=== PATIENT | male | born 1985 | race African-American/Black ===

== ENCOUNTER 2025-03-02 10:46 | Emergency (ER) | payer OTHER, SELFPAY ==
[2025-03-02] MEDS ORDERED: NA CHLORIDE 0.9% 1,000 ML ONE ×2 (12:22→14:43)
[2025-03-02 12:34] LABS: Absolute Lymphocytes (CBC) 2.2 K/uL (0.7-4.9); Hematocrit 41.8 % (39.6-49.0); Hemoglobin 14.3 g/dL (13.6-17.9); MCH 30.3 pg (27.0-35.0); MCHC 34.2 g/dL (32.0-36.0); MCV 88.7 fL (80-100); MPV 8.3 fL (7.6-11.3); Nucleated RBC Absolute Count 0.1 (0-0); Nucleated Red Blood Cells % 0.7 % (0-0); RBC Red Blood Cell Count 4.72 M/uL (4.33-5.43); White Blood Count 7.00 thou/uL (4.3-10.9)
[2025-03-02 13:05] LABS: ALT/SGPT 32.0 U/L (16-61); AST/SGOT 22.0 U/L (15-37); Albumin 3.7 g/dL (3.4-5.0); Albumin/Globulin Ratio 0.8 (1.1-1.8); Alkaline Phosphatase 68.0 U/L (45-117); Anion Gap 17.1 mEq/L (5.0-15.0); BUN Blood Urea Nitrogen 28.0 mg/dL (7-18); Globulin 4.6 g/dL (2.3-3.5); Glucose Level 397.0 mg/dL (74-106); Potassium 5.1 mEq/L (3.5-5.1)
[2025-03-02] MEDS ORDERED: INSULIN REGULAR (HUMAN) 100 UNIT/ML ONE (13:26)
[2025-03-02 16:12] LABS: Anion Gap 12.5 mEq/L (5.0-15.0); BUN Blood Urea Nitrogen 23.0 mg/dL (7-18); Glucose Level 209.0 mg/dL (74-106); Potassium 3.5 mEq/L (3.5-5.1)
--- NOTE | 2025-03-02 16:19 | ER ---
Nurse's Notes [facility] Name: Steven Vidales Age: 40 yrs Sex: Male : 1985 Arrival Date: 03/02/2025 Time: 10:46 Bed 16 Private MD: Diagnosis: Diabetes mellitus due to underlying condition with hyperglycemia Presentation: 03/02 10:56 Chief complaint: Spouse and/or significant other states: Hgb AIC was 13. Patient lost me1 his insurance and has been trying to manage blood sugar with diet and exercise but isnt able to. Hoping we can prescribe him something to help. Blood glucose is 412. Coronavirus screen: At this time, the client does not indicate any symptoms associated with coronavirus-19. Ebola Screen: No symptoms or risks identified at this time. Initial Sepsis Screen: Does the patient meet any 2 criteria? No. Patient's initial sepsis screen is negative. Does the patient have a suspected source of infection? No. Patient's initial sepsis screen is negative. Risk Assessment: Do you want to hurt yourself or someone else? Patient reports no desire to harm self or others. Onset of symptoms is unknown. 10:56 Method Of Arrival: Ambulatory [facility] [place] 10:56 Acuity: REG 3 me1 Triage Assessment: 12:38 General: Appears in no apparent distress. Behavior is cooperative. Pain: Denies pain. kj2 Neuro: Level of Consciousness is awake, alert, obeys commands, Oriented to person, place, time, situation. Cardiovascular: Patient's skin is warm and dry. Respiratory: Airway is patent Respiratory effort is unlabored. GI: No signs and/or symptoms were reported involving the gastrointestinal system. : No signs and/or symptoms were reported regarding the genitourinary system. Historical: - Allergies: 11:03 No Known Allergies; me1 - PMHx: 11:03 Diabetes mellitus; hemothorax; me1 - PSHx: 11:03 toe; me1 - Immunization history:: Adult Immunizations up to date. - Infectious Disease History:: Denies. - Social history:: Smoking status: Reported history of juuling and/or vaping. Patient/guardian denies using tobacco, but has a distant history of tobacco abuse. Screenin:39 [facility] ED Fall Risk Assessment (Adult) History of falling in the last 3 months, kj2 including since admission No falls in past 3 months (0 pts) Confusion or Disorientation No (0 pts) Intoxicated or Sedated No (0 pts) Impaired Gait No (0 pts) Mobility Assist Device Used No (0 pt) Altered Elimination No (0 pt) Score/Fall Risk Level 0 - 2 = Low Risk Maintained a safe environment, Hourly rounding (assess needs \T\ fall precautionary measures) done. Abuse screen: Denies threats or abuse. Denies injuries from another. Nutritional screening: No deficits noted. Tuberculosis screening: No symptoms or risk factors identified. Assessment: 12:38 General: Appears in no apparent distress. Behavior is calm, cooperative. Neuro: Level kj2 of Consciousness is awake, alert, obeys commands, Oriented to person, place, time, situation. Cardiovascular: Patient's skin is warm and dry. Respiratory: Airway is patent Respiratory effort is unlabored. GI: No signs and/or symptoms were reported involving the gastrointestinal system. : No signs and/or symptoms were reported regarding the genitourinary system. 13:30 Reassessment: Patient appears in no apparent distress at this time. Patient and/or kj2 family updated on plan of care and expected duration. Pain level reassessed. Patient is alert, oriented x 3, equal unlabored respirations, skin warm/dry/pink. 14:30 Reassessment: Patient appears in no apparent distress at this time. Patient and/or kj2 family updated on plan of care and expected duration. Pain level reassessed. Patient is alert, oriented x 3, equal unlabored respirations, skin warm/dry/pink. 15:13 Reassessment: Patient appears in no apparent distress at this time. Patient and/or kj2 family updated on plan of care and expected duration. Pain level reassessed. Patient is alert, oriented x 3, equal unlabored respirations, skin warm/dry/pink. 16:15 Reassessment: Patient appears in no apparent distress at this time. Patient and/or kj2 family updated on plan of care and expected duration. Pain level reassessed. Patient is alert, oriented x 3, equal unlabored respirations, skin warm/dry/pink. Vital Signs: 10:56 BP 141 / 92; Pulse 89; Resp 17; Temp 98.2; Pulse Ox 99% ; Weight 94.8 kg; Height 6 ft. me1 5 in. ; Pain 0/10; 12:41 BP 124 / 78; Pulse 74; Resp 18; Pulse Ox 100% on R/A; kj2 13:30 BP 117 / 61; Pulse 70; Resp 20; Pulse Ox 100% ; kj2 14:30 BP 129 / 72; Pulse 76; Resp 20; Pulse Ox 100% ; kj2 15:13 BP 107 / 70; Pulse 68; Resp 20; Pulse Ox 100% on R/A; kj2 16:15 BP 118 / 74; Pulse 70; Resp 20; Temp 98; Pulse Ox 100% ; kj2 10:56 Body Mass Index 24.78 (94.80 kg, 195.58 cm) me1 10:56 Pain Scale: Adult me1 ED Course: 10:50 Patient arrived in ED. im 10:50 La Villasenor FNP-C is PHCP. kb 10:50 Lester Hastings MD is Attending Physician. kb 11:03 Triage completed. me1 11:03 Arm band placed on Patient placed in waiting room. me1 12:13 Initial lab(s) drawn, by woven label designer, sent to lab. Inserted saline lock: 20 gauge in right ts3 upper arm, using aseptic technique. Blood collected. Flushed with 10 mL NS. 12:28 Rehana Rodriguez, RN is Primary Nurse. kj2 12:40 Patient has correct armband on for positive identification. Bed in low position. Call kj2 light in reach. Provided Education on: call light. 16:34 No provider procedures requiring assistance completed. IV discontinued, intact, kj2 bleeding controlled, No redness/swelling at site. Pressure dressing applied. Administered Medications: 12:38 Drug: NS 0.9% IV 1000 ml IV at 1000 ml once; to be given as a bolus over 60 minutes kj2 Route: IV; Rate: 1000 ml; Site: right upper arm; 16:37 Follow up: IV Status: Completed infusion kj2 16:37 Follow up: IV Status: Completed infusion; IV Intake: 1000ml kj2 13:30 Drug: Insulin Regular Human IVP 5 units IVP once {Co-Signature: iw (Macy Arias2 RN).} Route: IVP; Site: right upper arm; 16:37 Follow up: Response: No adverse reaction kj2 14:53 Drug: NS 0.9% IV 1000 ml IV at 1000 ml once; to be given as a bolus over 60 minutes kj2 Route: IV; Rate: 1000 ml; Site: right upper arm; 16:36 Follow up: IV Status: Completed infusion; IV Intake: 1000ml kj2 Medication: 16:37 VIS not applicable for this client. kj2 Intake: 16:36 IV: 1000ml; Total: 1000ml. kj2 16:37 IV: 1000ml; Total: 2000ml. kj2 Outcome: 16:19 Discharge ordered by MD. villanueva 16:35 Discharged to home ambulatory, with friend, kj2 16:35 Condition: stable 16:35 Discharge instructions given to patient, Instructed on discharge instructions, follow up and referral plans. Demonstrated understanding of instructions, follow-up care, medications, Prescriptions given X 1, 16:37 Patient left the ED. kj2 Signatures: La Villasenor, DRAINLAYER-C DRAINLAYER-CkYudith Coleman Michelle RN RN me1 Rehana Rodriguez RN RN kj2 Candelaria Paulson 3 Macy Arias RN iw Corrections: (The following items were deleted from the chart) 11:04 11:03 PMHx: collapsed lung; me1 me1
--- NOTE | 2025-03-02 16:19 | EDPHYS ---
Physician Documentation [facility] Name: Steven Vidales Age: 40 yrs Sex: Male : 1985 Arrival Date: 03/02/2025 Time: 10:46 Bed 16 Private MD: ED Physician Lester Hastings HPI: 03/02 11:13 This 40 yrs old Male presents to ER via Ambulatory with complaints of High Blood Sugar. kb 11:13 Patient is a 40-year-old male who presents for high A1c. States he was diagnosed with diabetes type 2 last year but lost his insurance and has not been able to afford medication. States he was trying to get a new job and they did blood work on Sunday. Hemoglobin A1c came back at 13 so they told him he needed to be evaluated and treated for his blood sugar before he could start working.. Historical: - Allergies: 11:03 No Known Allergies; me1 - PMHx: 11:03 Diabetes mellitus; hemothorax; me1 - PSHx: 11:03 toe; me1 - Immunization history:: Adult Immunizations up to date. - Infectious Disease History:: Denies. - Social history:: Smoking status: Reported history of juuling and/or vaping. Patient/guardian denies using tobacco, but has a distant history of tobacco abuse. ROS: 14:14 Constitutional: As per HPI kb Exam: 14:14 Constitutional: This is a well developed, well nourished patient who is awake, alert, kb and in no acute distress. Head/Face: Normocephalic, atraumatic. ENT: Moist Mucous membranes Cardiovascular: Regular rate Respiratory: Respirations even and unlabored. No increased work of breathing. Talking in full sentences Abdomen/GI: Soft, non-tender. No distention Skin: Warm, dry with normal turgor. Normal color. MS/ Extremity: Pulses equal, no cyanosis. Neurovascular intact. Full, normal range of motion. Neuro: Awake and alert, GCS 15, oriented to person, place, time, and situation. Vital Signs: 10:56 BP 141 / 92; Pulse 89; Resp 17; Temp 98.2; Pulse Ox 99% ; Weight 94.8 kg; Height 6 ft. me1 5 in. ; Pain 0/10; 12:41 BP 124 / 78; Pulse 74; Resp 18; Pulse Ox 100% on R/A; kj2 13:30 BP 117 / 61; Pulse 70; Resp 20; Pulse Ox 100% ; kj2 14:30 BP 129 / 72; Pulse 76; Resp 20; Pulse Ox 100% ; kj2 15:13 BP 107 / 70; Pulse 68; Resp 20; Pulse Ox 100% on R/A; kj2 16:15 BP 118 / 74; Pulse 70; Resp 20; Temp 98; Pulse Ox 100% ; kj2 10:56 Body Mass Index 24.78 (94.80 kg, 195.58 cm) me1 10:56 Pain Scale: Adult me1 MDM: 10:50 Medical Screening Exam initiated kb 13:33 ED course: Corrected sodium 131. kb 14:14 Differential diagnosis: DKA, hyperglycemia, new onset diabetes. Data reviewed: vital kb signs, nurses notes. Counseling: I had a detailed discussion with the patient and/or guardian regarding the historical points, exam findings, and any diagnostic results supporting the discharge/admit diagnosis, lab results, the need for outpatient follow up, a family practitioner, to return to the emergency department if symptoms worsen or persist or if there are any questions or concerns that arise at home. 16:19 Consideration of Admission/Observation Escalation of care including kb admission/observation considered. Admission considered but labs improved after treatment would like to go home.. 03/02 10:59 Order name: CBC with Diff; Complete Time: 12:41 kb 03/02 10:59 Order name: CMP; Complete Time: 13:12 kb 03/02 11:13 Order name: Glucose, Ancillary Testing; Complete Time: 11:17 EDMS 03/02 14:17 Order name: BMP: obtain after 2nd liter infused ; Complete Time: 16:19 hb 03/02 14:24 Order name: Glucose, Ancillary Testing; Complete Time: 14:28 EDMS 03/02 10:59 Order name: IV Start; Complete Time: 12:13 kb 03/02 14:06 Order name: Blood Glucose Level; Complete Time: 14:12 kb Administered Medications: 12:38 Drug: NS 0.9% IV 1000 ml IV at 1000 ml once; to be given as a bolus over 60 minutes kj2 Route: IV; Rate: 1000 ml; Site: right upper arm; 16:37 Follow up: IV Status: Completed infusion kj2 16:37 Follow up: IV Status: Completed infusion; IV Intake: 1000ml kj2 13:30 Drug: Insulin Regular Human IVP 5 units IVP once {Co-Signature: iw (Macy Arias2 RN).} Route: IVP; Site: right upper arm; 16:37 Follow up: Response: No adverse reaction kj2 14:53 Drug: NS 0.9% IV 1000 ml IV at 1000 ml once; to be given as a bolus over 60 minutes kj2 Route: IV; Rate: 1000 ml; Site: right upper arm; 16:36 Follow up: IV Status: Completed infusion; IV Intake: 1000ml kj2 Disposition: 17:52 Co-signature as Attending Physician, Lester Hastings MD I reviewed the patient's care rn provided by the Advanced Practice Provider and agree with the diagnosis and treatment plan. Disposition Summary: 03/02/25 16:19 Discharge Ordered Notes: Location: Home kb Condition: Stable kb Diagnosis - Diabetes mellitus due to underlying condition with hyperglycemia kb Followup: kb - With: Emergency Department - When: As needed - Reason: Worsening of condition Followup: kb - With: Private Physician - When: 2 - 3 days - Reason: Recheck today's complaints, Continuance of care, Re-evaluation by your physician Discharge Instructions: - Discharge Summary Sheet kb - Hyperglycemia kb - Type 2 Diabetes Mellitus, Diagnosis, Adult, [id number] kb Forms: - Medication Reconciliation Form kb - Antibiotic Education kb - Prescription Opioid Use kb - Patient Portal Instructions kb - Leadership Thank You Letter kb Prescriptions: - Metformin 500 mg Oral Tablet - take 1 tablet ORAL route once daily for 7 days Then take 1 tablet with morning kb meals AND evening meals; 21 tablet; Refills: 0, Product Selection Permitted Signatures: Dispatcher [employer] EDMI La Villasenor, DOCTOR OF NURSE ANESTHESIA PRACTICE-C DOCTOR OF NURSE ANESTHESIA PRACTICE-Ckb Lester Hastings MD MD rn Baxter, Heather, RN RN Mandy Paz RN RN me1 Rehana Rodriguez RN RN kj2 Macy Arias RN iw Corrections: (The following items were deleted from the chart) 10:59 10:59 CBC+H.LAB.BRZ ordered. EDMS EDMS 10:59 10:59 COMPREHENSIVE METABOLIC PANEL+C.LAB.BRZ ordered. EDMI EDMS 11:04 11:03 PMHx: collapsed lung; me1 me1 14:17 14:17 BASIC METABOLIC PANEL+C.LAB.BRZ ordered. EDMS EDMS
[2025-03-02 20:44] VITALS: O2SAT 100
[2025-03-02 21:02] VITALS: BP 118/74; TEMP 98
== END 2025-03-02 16:37 | disposition home or self-care (01) ==
LOC: ER 10:46
DX: E11.65 Type 2 diabetes mellitus with hyperglycemia (principal); F17.210 Nicotine dependence, cigarettes, uncomplicated
CPT/HCPCS: 96361; 85025; 80048; 36415; 82947 ×2; 80053; 96374; 99284; J1815; J7030 ×2